=== PATIENT | male | born 1980 | race African-American/Black ===

== ENCOUNTER 2021-07-23 11:47 | Emergency (ER) | payer OTHER ==
[~2021-07-23] VITALS: Ht 185.4 cm; Wt 99.8 kg
[2021-07-23] MEDS ORDERED: NOHOMEMEDICATIONS (11:59)
[2021-07-23] MEDS ORDERED: NORFLEX100 MG PO (12:55)
[2021-07-23] MEDS ORDERED: HYDROCHLOROTHIA25 M1 PO (12:55)
[2021-07-23 13:00] VITALS: BP 187/129
== END 2021-07-23 13:00 | disposition home or self-care (01) ==
LOC: ER 11:47
DX: M25.562 Pain in left knee (principal); I10 Essential (primary) hypertension; F17.210 Nicotine dependence, cigarettes, uncomplicated